=== PATIENT | female | born 1965 | race Caucasian/White ===

== ENCOUNTER 2022-05-15 15:17 | Emergency (ER) | payer OTHER ==
[2022-05-15 15:25] VITALS: BP 159/86
--- NOTE | 2022-05-15 15:47 | ED Physician Documentation ---
History of Present Illness - Stated complaint Stated Complaint: L THUMB LAC - Chief complaint Chief Complaint: Laceration - Additonal information Additional information: 56-year-old female presents emergency department for evaluation of a left thumb laceration sustained when [place]. She is left-hand dominant. She has a large laceration that extends across the radial side to the palmar surface. Neurovascularly intact. Patient's reports tetanus status is up-to-date Review of Systems Constitutional: reports: Reviewed and negative Cardiac: reports: Reviewed and negative Respiratory: reports: Reviewed and negative Skin: reports: Laceration (s) PD PAST MEDICAL HISTORY - Past Medical History Past Medical History: Yes Cardiovascular: Hypertension, High cholesterol, Arrhythmia Respiratory: None Neuro: None Endocrine/Autoimmune: None GI: Other TERRITORY SALES EXECUTIVE: None : None HEENT: None Psych: None Musculoskeletal: None Derm: None - Past Surgical History Past Surgical History: Yes /TERRITORY SALES EXECUTIVE: Hysterectomy - Present Medications Home Medications: Ambulatory Orders Medication Instructions Recorded Confirmed Escitalopram Oxalate 5 mg PO DAILY 05/15/22 05/15/22 Linaclotide [Linzess] 145 mcg ORAL DAILY 05/15/22 05/15/22 Metoprolol Succinate [Toprol Xl] 25 mg PO DAILY 05/15/22 05/15/22 Progesterone,Micronized 300 mg PO DAILY 05/15/22 05/15/22 [Prometrium] Rosuvastatin Calcium [Crestor] 20 mg PO HS 05/15/22 05/15/22 - Allergies Allergies/Adverse Reactions: Allergies Allergy/AdvReac Type Severity Reaction Status Date / Time No Known Drug Allergies Allergy Verified 05/15/22 15:21 - Social History Does the pt smoke?: No Smoking Status: Never smoker Does the pt drink ETOH?: No Does the pt have substance abuse?: No - Immunizations Immunizations are current?: Yes PD ED PE NORMAL - Extremities Extremities: Other (Left thumb with 4.5 cm laceration that extends from the radial side to the fat pad. Bleeding controlled with pressure. Able to flex and extend at DIP joint. Distal sensation intact) Results - Vitals Vitals: Vital Signs - 24 hr 05/15/22 15:22 Temperature 36 C L Heart Rate 78 Respiratory 16 Rate Blood Pressure 159/86 H O2 Saturation 96 Oxygen O2 Source Room air Procedures - Laceration (location) left thumb Length in cm: 5 Wound type: Curved, Into muscle, Clean Neurovascular status: Sensory intact, Motor intact Tendon involvement: Tendon intact Anesthesia: Lidocaine 1% Wound preparation: Chlorhexadine, Irrigated copiously NS, Wound explored, Extensive undermining Skin layer closure: Interrupted, Size #-0 - enter number (4), Sutures - enter # (10) Other: Patient tolerated well, No complications, Neurovascular intact, Tetanus UTD PD MEDICAL DECISION MAKING - ED course Complexity details: considered differential, d/w patient ED course: 56-year-old female presents emergency department for evaluation of a left thumb laceration sustained when throwing a broken mirror away at the [facility]. She is left-hand dominant. Tetanus is up-to-date. This was a 5 cm curved laceration that extended from the radial side of the thumb underneath to the fat pad. 10 sutures were placed at the bedside. No evidence of neurovascular compromise or tendon injury.Routine wound care and emergent return precautions discussed Departure - Departure Disposition: 01 Home, Self Care Clinical Impression: Laceration of left thumb Qualifiers: Encounter type: initial encounter Damage to nail status: without damage Foreign body presence: without foreign body Qualified Code(s): S61.012A - Laceration without foreign body of left thumb without damage to nail, initial encounter Condition: Stable Record reviewed to determine appropriate education?: Yes Instructions: ED Laceration Hand Comments: Tricia it was a pleasure to care fo ryou today. Your suture(s) should be removed in 10-14 days. In 24 hours you may remove the dressing wash gently with warm soap and water, apply any antibiotic ointment and a simple bandage. Your tetanus is up-to-date. Please attempt to keep your wound clean and dry. Do not submerge it in dirty dishwater or bath water. I encourage you to wear the aluminum splint to keep the finger in extension while the wound heals and to prevent tissue disruption. In general I recommend that you take Tylenol or ibuprofen for discomfort. Return to the emergency department if you have any concerns of infection such as redness, fevers milky drainage increased pain.
[2022-05-15] MEDS: BACITRACIN ZINC OINT 1 PACKET TOP STA (16:12)
== END 2022-05-15 16:31 | disposition home or self-care (01) ==
LOC: ED 15:17
DX: S61.012A Laceration without foreign body of left thumb without damage to nail, initial encounter (principal); W25.XXXA Contact with sharp glass, initial encounter; Y93.89 Activity, other specified; Y92.89 Other specified places as the place of occurrence of the external cause
CPT/HCPCS: 12002; 99281; A9270